=== PATIENT | male | born 1960 ===

== ENCOUNTER 2021-06-02 09:01 | Outpatient (CLI) | payer OTHER | END 2021-06-02 09:18 | disposition home or self-care (01) | LOC: TOM 09:01 | PROVIDERS: ATTEND Urology | DX: N40.0 Benign prostatic hyperplasia without lower urinary tract symptoms (principal); N20.1 Calculus of ureter ==

== ENCOUNTER 2022-08-06 20:00 | Emergency (ER) | payer OTHER ==
[~2022-08-06] VITALS: Ht 180.3 cm; Wt 99.8 kg
== END 2022-08-06 21:12 | disposition home or self-care (01) ==
LOC: ER 20:00
DX: S61.411A Laceration without foreign body of right hand, initial encounter (principal); X58.XXXA Exposure to other specified factors, initial encounter; Y93.9 Activity, unspecified; Y92.015 Private garage of single-family (private) house as the place of occurrence of the external cause; Y99.9 Unspecified external cause status

== ENCOUNTER 2024-04-11 07:58 | Outpatient (CLI) | payer OTHER | END 2024-04-11 08:08 | disposition home or self-care (01) | LOC: SONOGRAMA 07:58 | DX: K74.60 Unspecified cirrhosis of liver (principal) ==

== ENCOUNTER 2024-11-06 07:20 | Outpatient (CLI) | payer OTHER | END 2024-11-06 07:29 | disposition home or self-care (01) | LOC: SONOGRAMA 07:20 | DX: K74.60 Unspecified cirrhosis of liver (principal) ==